=== PATIENT | female | born 1950 | race Two or more races ===

== ENCOUNTER 2022-01-07 08:30 | Inpatient (IN) | payer OTHER ==
[~2022-01-07] VITALS: Ht 154.9 cm; Wt 74.4 kg
[2022-01-07] MEDS ORDERED: COZAAR50 MG PO (12:56)
[2022-01-07] MEDS ORDERED: CHILDREN'S ASPI81 MG PO (12:56)
[2022-01-07] MEDS ORDERED: LIPITOR PO (12:57)
[2022-01-07] MEDS ORDERED: ATORVASTATIN CA40 MG PO (12:57)
[2022-01-13] MEDS ORDERED: DUI500 PO (15:28)
[2022-01-13] MEDS ORDERED: ELIQUIS2.5 MG PO (15:28)
[2022-01-13] MEDS ORDERED: PERCOCET 5-3251 EACH PO (15:28)
== END 2022-01-14 21:28 | disposition home or self-care (01) | DRG 470 ==
LOC: SURH 01-11 06:25 → O/R 01-11 06:25 → SURH 01-11 08:30
PROVIDERS: ADMIT Orthopaedic Surgery; ATTEND Orthopaedic Surgery
PROC: 0SRD0J9 Replacement of Left Knee Joint with Synthetic Substitute, Cemented, Open Approach (ICD-10-PCS; principal; 2022-01-11 12:15)
PROC: B24BZZZ Ultrasonography of Heart with Aorta (ICD-10-PCS; 2022-01-14)
DX: M17.12 Unilateral primary osteoarthritis, left knee (principal); D62 Acute posthemorrhagic anemia; M22.12 Recurrent subluxation of patella, left knee; R06.02 Shortness of breath; R09.02 Hypoxemia; I10 Essential (primary) hypertension; Z20.822 Contact with and (suspected) exposure to COVID-19

== ENCOUNTER 2025-07-15 08:00 | Inpatient (IN) | payer OTHER ==
[~2025-07-15] VITALS: Ht 157.5 cm; Wt 81.6 kg
[~2025-07-15 08:00] MED LIST: ATORVASTATIN CA40 MG PO; CHILDREN'S ASPI81 MG PO; COZAAR50 MG PO; DUI500 PO; ELIQUIS2.5 MG PO; LIPITOR PO; PERCOCET 5-3251 EACH PO; TRAM1TAB98 PO
[2025-07-15 12:01] LABS: URINE APPEARANCE Clear; URINE BACTERIA 4737.2 uL (0.0-1933); URINE BILIRRUBIN Negative (NEGATIVE); URINE BLOOD Negative; URINE CAST 1.61 uL (0.0-1.40); URINE COLOR Yellow; URINE EPITHELIAL CELLS 31.8 uL (0.0-38.8); URINE GLUCOSE Negative (NEGATIVE); URINE KETONE Negative (NEGATIVE); URINE LEUKOCYTE Negative; URINE NITRATE Negative; URINE PROTEIN Negative (NEGATIVE); URINE RBC 2.9 uL (0.0-20.8); URINE UROBILINOGEN 1.0 E.U./dl; URINE WBC 25.5 uL (0.0-23.2)
[2025-07-15 12:03] LABS: COVID-19 AG NEGATIVE (NEGATIVE)
[2025-07-15 12:46] LABS: ALT/SGPT 24.0 U/L (12-78); AST/SGOT 20.0 U/L (15-37); BILIRUBIN TOTAL 0.59 mg/dL (0.3-1.2); BUN CREA RATIO 17.0 (7.0-25.0); CREATININE SERUM 0.76 mg/dL (0.55-1.02); GFR 73.99; GLOBULINA 4.0 G/DL (2.4-3.5); GLUCOSE FASTING 91.0 mg/dL (65-100); OSMOLALITY SERUM 287.0 MOSM/KG (275-295)
[2025-07-15 13:42] LABS: BASO % 0.8 % (0.1-1.2); EOS # 0.23 (0.04-0.54); EOS % 4.3 % (0.7-7.0); LYMPH # 1.95 (1.18-3.74); LYMPH % 36.7 % (19.3-53.1); MEAN PLATELET VOLUME 11.20 fl (9.4-12.4); MONO # 0.56 (0.24-0.82); MONO % 10.5 % (4.7-12.5); NEUT # 2.53 (1.56-6.13); NEUT % 47.5 % (34.0-71.1); RED CELL DISTRIBUTION WIDTH 12.5 % (11.6-14.4)
[2025-07-15 13:44] LABS: INR 1.02
[2025-07-15 14:38] LABS: RH POSITIVE
[2025-07-15] MEDS ORDERED: EZETIMIBE10 MG PO (16:32)
[2025-07-15 16:35] VITALS: BP 143/85
[2025-07-22] MEDS ORDERED: TRANEXAMIC ACID 100MG/1ML (1000MG) AMPUL ONE (10:05)
[2025-07-22] MEDS ORDERED: CEFAZOLIN SODIUM 1,000 MG VIAL ONE (10:05)
[2025-07-22] MEDS ORDERED: VANCOMYCIN HCL 1,000 MG VIAL ONE (10:58)
[2025-07-22] MEDS ORDERED: BUPIVACAINE HCL/MPF 0.5% 30ML VIAL ONE (11:24)
[2025-07-22] MEDS ORDERED: LIDOCAINE HCL 1%/EPINEPHRINE 20ML VIAL IJ ONE (11:24)
[2025-07-22] MEDS ORDERED: KETOROLAC TROMETHAMINE 60 MG VIAL IM ONE (11:24)
[2025-07-22] MEDS ORDERED: ENALAPRILAT DIHYDRATE 1.25 MG/ML VIAL IV PRN (16:00)
[2025-07-22] MEDS ORDERED: SODIUM CHLORIDE 0.45 % 1,000 ML IV SCH (16:30)
[2025-07-22] MEDS ORDERED: ONDANSETRON HCL 2 MG/ML VIAL IV PRN (16:30)
[2025-07-22] MEDS ORDERED: MORPHINE SULFATE 4 MG/ML CARTRIDGE IV PRN (16:30)
[2025-07-22] MEDS ORDERED: OxyCODONE HCL 5 MG TABLET (ROXICODONE) PO PRN (16:30)
[2025-07-22] MEDS ORDERED: ATORVASTATIN CALCIUM 40 MG TABLET PO SCH (17:00)
[2025-07-22] MEDS ORDERED: CEFAZOLIN SODIUM 1,000 MG VIAL IV SCH (17:00)
[2025-07-22] MEDS ORDERED: GABAPENTIN 300 MG CAPSULE PO SCH (17:00)
[2025-07-22 17:50] VITALS: BP 134/78; O2SAT 94
[2025-07-22] MEDS ORDERED: ACETAMINOPHEN 500 MG GEL..CAP PO SCH (18:00)
[2025-07-23 00:40] VITALS: BP 141/78; O2SAT 100
[2025-07-23 06:55] LABS: BASO % 0.6 % (0.1-1.2); EOS # 0.36 (0.04-0.54); EOS % 5.3 % (0.7-7.0); LYMPH # 1.31 (1.18-3.74); LYMPH % 19.4 % (19.3-53.1); MEAN PLATELET VOLUME 10.70 fl (9.4-12.4); MONO # 0.63 (0.24-0.82); MONO % 9.3 % (4.7-12.5); NEUT # 4.38 (1.56-6.13); NEUT % 65.1 % (34.0-71.1); RED CELL DISTRIBUTION WIDTH 12.5 % (11.6-14.4)
[2025-07-23 08:00] VITALS: BP 123/72; O2SAT 95
[2025-07-23] MEDS ORDERED: ELIQUIS2.5 MG PO (08:02)
[2025-07-23] MEDS ORDERED: CEFADROXIL500 MG PO (08:02)
[2025-07-23] MEDS ORDERED: PERCOCET 5-3251 EACH PO (08:02)
[2025-07-23] MEDS ORDERED: APIXABAN 2.5 MG TABLET PO SCH (09:00)
[2025-07-23] MEDS ORDERED: LOSARTAN POTASSIUM 50 MG TABLET PO SCH (09:00)
[2025-07-23] MEDS ORDERED: SENNOSIDES 1 TAB TABLET PO SCH (09:00)
[2025-07-23] MEDS ORDERED: Cyanocobalamin/Mecobalamin 1 TAB.SL SL NR (15:45)
[2025-07-23 18:29] VITALS: BP 116/69; O2SAT 95
[2025-07-24 01:30] VITALS: BP 132/80; O2SAT 96
[2025-07-24 06:41] LABS: BASO % 0.5 % (0.1-1.2); EOS # 0.32 (0.04-0.54); EOS % 3.5 % (0.7-7.0); LYMPH # 1.38 (1.18-3.74); LYMPH % 14.9 % (19.3-53.1); MEAN PLATELET VOLUME 11.20 fl (9.4-12.4); MONO # 0.91 (0.24-0.82); MONO % 9.8 % (4.7-12.5); NEUT # 6.58 (1.56-6.13); NEUT % 71.0 % (34.0-71.1); RED CELL DISTRIBUTION WIDTH 12.4 % (11.6-14.4)
[2025-07-24] MEDS ORDERED: IRON FUM,PS/FOLIC ACID/VITC/B3 1 CAP CAPSULE PO SCH (09:00)
[2025-07-24] MEDS ORDERED: Cyanocobalamin/Mecobalamin 1 TAB.SL SL SCH (09:00)
[2025-07-24 11:11] VITALS: BP 128/83; O2SAT 93
[2025-07-24 16:00] VITALS: BP 132/77; O2SAT 99
== END 2025-07-24 20:50 | disposition home or self-care (01) | DRG 470 ==
LOC: SURH 07-22 08:00 → O/R 07-22 09:00 → SURH 07-22 14:15
PROVIDERS: ADMIT Orthopaedic Surgery; ATTEND Orthopaedic Surgery
PROC: 0MNN0ZZ Release Right Knee Bursa and Ligament, Open Approach (ICD-10-PCS; 2025-07-22)
PROC: 0SUC07Z Supplement Right Knee Joint with Autologous Tissue Substitute, Open Approach (ICD-10-PCS; 2025-07-22)
PROC: 0SRC0JZ Replacement of Right Knee Joint with Synthetic Substitute, Open Approach (ICD-10-PCS; principal; 2025-07-22 14:15)
DX: M17.11 Unilateral primary osteoarthritis, right knee (principal); D62 Acute posthemorrhagic anemia; M22.11 Recurrent subluxation of patella, right knee; I10 Essential (primary) hypertension